=== PATIENT | male | born 1990 | race Hispanic/Latino ===

== ENCOUNTER 2018-10-31 21:23 | Emergency (ER) | payer SELFPAY ==
[2018-10-31] MEDS ORDERED: LIDOCAINE 1% 20 ML MDV ONE (21:56)
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
== END 2018-10-31 23:01 | disposition home or self-care (01) ==
LOC: ER 21:23
PROC: 0JQJ0ZZ Repair Right Hand Subcutaneous Tissue and Fascia, Open Approach (ICD-10-PCS; principal; 2018-10-31)
DX: S61.411A Laceration without foreign body of right hand, initial encounter (principal); W25.XXXA Contact with sharp glass, initial encounter; Y93.9 Activity, unspecified; Y92.9 Unspecified place or not applicable
CPT/HCPCS: 99283

== ENCOUNTER 2018-12-31 19:29 | Emergency (ER) | payer SELFPAY ==
[2018-12-31] MEDS ORDERED: ACETAMINOPHEN 500 MG TAB ONE (20:48)
[2018-12-31] MEDS ORDERED: IBUPROFEN 400 MG TAB ONE (20:48)
[2018-12-31 21:07] LABS: Potassium 3.6 mmol/L (3.5-5.1)
--- NOTE | 2018-12-31 22:17 | ER ---
Nurse's Notes [facility] Name: Tai Adams Age: 28 yrs Sex: Male : 1990 Arrival Date: 12/31/2018 Time: 19:35 Bed 24 Private MD: Diagnosis: Pain in left leg;Pain in right leg Presentation: 12/31 19:40 Transition of care: patient was not received from another setting of care. aj 19:40 Method Of Arrival: Ambulatory aj 19:40 Presenting complaint: Patient states: I have a lot of pain in my legs I have been aj1 working 12 hours a day. I had surgery in my leg 2 years ago. Reports that he has had pain in his legs for years but its worse for the past couple days. Reports that he used to take Neurontin but he stopped taking it. Onset of symptoms. Risk Assessment: Do you want to hurt yourself or someone else? Patient reports no desire to harm self or others. Initial Sepsis Screen: Does the patient meet any 2 criteria? No. Patient's initial sepsis screen is negative. Does the patient have a suspected source of infection? No. Patient's initial sepsis screen is negative. Care prior to arrival: None. 19:40 Acuity: YOVANY 5 aj1 Triage Assessment: 19:45 General: Appears in no apparent distress. comfortable, Behavior is calm, cooperative, aj1 appropriate for age. Pain: Complains of pain in right leg and left leg. Pain: Pain currently is 10 out of 10 on a pain scale. Neuro: Level of Consciousness is awake, alert, obeys commands. Cardiovascular: Patient's skin is warm and dry. Respiratory: Airway is patent Respiratory effort is even, unlabored, Respiratory pattern is regular, symmetrical. GI: No signs and/or symptoms were reported involving the gastrointestinal system. Musculoskeletal: Range of motion: intact in all extremities. Historical: - Allergies: 19:45 NKDA; aj1 - Home Meds: 19:45 None [Active]; aj1 - PMHx: 19:45 None; aj1 - Immunization history:: Flu vaccine is not up to date. - Social history:: Smoking status: Patient uses tobacco products, denies chronic smoking, but will smoke occasionally. - Ebola Screening: : Patient denies travel to an Ebola-affected area in the 21 days before illness onset. Screenin:58 Abuse screen: Denies threats or abuse. Denies injuries from another. Nutritional mg2 screening: No deficits noted. Tuberculosis screening: No symptoms or risk factors identified. Fall Risk None identified. Assessment: 19:57 General: Appears in no apparent distress. comfortable, Behavior is calm, cooperative. mg2 Pain: Complains of pain in left leg and right leg Pain does not radiate. Pain currently is 5 out of 10 on a pain scale. Quality of pain is described as aching, Pain began gradually, 1 day ago. Is intermittent. Neuro: Level of Consciousness is awake, alert, obeys commands, Oriented to person, place, time, situation. Cardiovascular: Capillary refill < 3 seconds Patient's skin is warm and dry. Respiratory: Airway is patent Respiratory effort is even, unlabored, Respiratory pattern is regular, symmetrical. GI: No signs and/or symptoms were reported involving the gastrointestinal system. : No signs and/or symptoms were reported regarding the genitourinary system. EENT: No signs and/or symptoms were reported regarding the EENT system. Derm: Skin is intact, is healthy with good turgor, Skin is pink, warm \T\ dry. normal. Musculoskeletal: Circulation, motion, and sensation intact. Capillary refill < 3 seconds, Reports pain in left leg and right leg. 22:31 Reassessment: Patient denies pain at this time. Patient states feeling better. Patient mg2 states symptoms have improved. 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 mg2 Vital Signs: 19:45 BP 125 / 87; Pulse 90; Resp 18; Temp 98.9(O); Pulse Ox 100% on R/A; Weight 68.04 kg aj1 (R); Height 5 ft. 7 in. (170.18 cm) (R); Pain 10/10; 21:34 BP 113 / 67; Pulse 77; Resp 18; Pulse Ox 98% on R/A; mg2 19:45 Body Mass Index 23.49 (68.04 kg, 170.18 cm) aj1 ED Course: 19:35 Patient arrived in ED. am2 19:44 Triage completed. aj1 19:45 Arm band placed on Patient placed in an exam room. aj1 19:47 Lyndon Bautista PA is PHCP. cp 19:47 Lyndon Sellers MD is Attending Physician. cp 19:56 Juan Tom, RN is Primary Nurse. mg2 19:58 No provider procedures requiring assistance completed. Patient did not have IV access mg2 during this emergency room visit. 19:59 Patient has correct armband on for positive identification. mg2 21:36 US Extremity Venous W Compression George In Process Unspecified. EDMS 22:16 Higinio Merchant DO is Referral Physician. cp Administered Medications: 20:45 Drug: Tylenol 1000 mg Route: PO; mg2 21:21 Follow up: Response: No adverse reaction; Marked relief of symptoms mg2 20:46 Drug: Ibuprofen 800 mg Route: PO; mg2 21:22 Follow up: Response: No adverse reaction; Marked relief of symptoms mg2 Outcome: 22:16 Discharge ordered by MD. cp 22:31 Discharged to home ambulatory. mg2 22:31 Condition: stable 22:31 Discharge instructions given to patient, Instructed on discharge instructions, follow up and referral plans. medication usage, Demonstrated understanding of instructions, follow-up care, medications, Prescriptions given X 2. 22:32 Patient left the ED. mg2 Signatures: Dispatcher [employer] EDMS Sonia Torres, RN RN aj1 Lyndon Bautista, KERRY PA cp Zelda Raymundo am2 Juan Tom, RN RN mg2
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
--- NOTE | 2019-01-01 06:33 | RAD REPORT ---
EXAM DESCRIPTION: US - Extrem Venous W Compress George - 12/31/2018 9:37 pm CLINICAL HISTORY: Leg pain and swelling COMPARISON: None. TECHNIQUE: Real-time sonographic evaluation of the bilateral lower extremity common femoral, superfi cial femoral, popliteal and posterior tibial veins was performed. FINDINGS: Normal compressibility, flow augmentation, phasic flow and spontaneous flow are identified in the left and right lower extremity common femoral, superficial femoral, popliteal and posterior t ibial veins. No intraluminal filling defects seen. IMPRESSION: No DVT in either lower extremity.
== END 2018-12-31 22:32 | disposition home or self-care (01) ==
LOC: ER 19:29
DX: M79.605 Pain in left leg (principal); M79.604 Pain in right leg; Z72.0 Tobacco use
CPT/HCPCS: 36415; 80048; 93970; 99283

== ENCOUNTER 2019-01-05 08:00 | Emergency (ER) | payer SELFPAY ==
[2019-01-05] MEDS ORDERED: ONDANSETRON 4 MG/2 ML VIAL ONE (08:27)
[2019-01-05] MEDS ORDERED: NA CHLORIDE 0.9% 1,000 ML ONE (08:27)
[2019-01-05 08:41] LABS: Absolute Lymphocytes (CBC) 1.5 K/uL (0.7-4.9); Absolute Monocytes 0.4 K/uL (0.1-1.3); Absolute Neutrophil 4.4 K/uL (1.8-8.0); Basophils % 0.6 % (0-1.3); Eosinophils % 6.3 % (0-4.4); Hematocrit 43.6 % (39.6-49.0); Lymphocytes % 22.2 % (15.3-44.8); MPV 8.1 fL (7.6-11.3); Monocytes % 5.3 % (3.3-12.3); RBC Red Blood Cell Count 4.86 M/uL (4.33-5.43)
[2019-01-05 09:00] LABS: Potassium 3.9 mmol/L (3.5-5.1)
--- NOTE | 2019-01-05 09:41 | ER ---
Nurse's Notes [facility] Name: Tai Adams Age: 28 yrs Sex: Male : 1990 Arrival Date: 01/05/2019 Time: 08:02 Bed 20 Private MD: Diagnosis: Cough;Nausea and vomiting Presentation: 01/05 08:06 Presenting complaint: Patient states: generalized abd pain, nausea, vomiting, and aa5 diarrhea since yesterday. Transition of care: patient was not received from another setting of care. Onset of symptoms was December 2018. Risk Assessment: Do you want to hurt yourself or someone else? Patient reports no desire to harm self or others. Initial Sepsis Screen: Does the patient meet any 2 criteria? No. Patient's initial sepsis screen is negative. Does the patient have a suspected source of infection? No. Patient's initial sepsis screen is negative. Care prior to arrival: None. 08:06 Method Of Arrival: Ambulatory aa5 08:06 Acuity: YOVANY 3 aa5 Triage Assessment: 08:09 General: Appears in no apparent distress. Behavior is calm, cooperative, appropriate tw2 for age. Historical: - Allergies: 08:05 NKDA; aa5 - PMHx: 08:05 None; aa5 - PSHx: 08:05 Appendectomy; left femur; abd exploratory surgery; aa5 - Immunization history:: Flu vaccine status is unknown. - Social history:: Smoking status: Patient uses tobacco products, denies chronic smoking, but will smoke occasionally. - Ebola Screening: : No symptoms or risks identified at this time. Screenin:08 Abuse screen: Denies threats or abuse. Nutritional screening: No deficits noted. tw2 Tuberculosis screening: No symptoms or risk factors identified. Fall Risk None identified. Assessment: 08:19 General: Appears in no apparent distress. slender, Behavior is calm, cooperative, tw2 appropriate for age. Pain: Complains of pain in sore throat. Neuro: Level of Consciousness is awake, alert, obeys commands, Oriented to person, place, time, situation. Cardiovascular: Heart tones S1 S2 Patient's skin is warm and dry. Respiratory: Airway is patent Respiratory effort is even, unlabored, Respiratory pattern is regular, symmetrical, Breath sounds are clear bilaterally. GI: Abdomen is flat, Bowel sounds present X 4 quads. Reports diarrhea, nausea, vomiting. : No signs and/or symptoms were reported regarding the genitourinary system. EENT: No signs and/or symptoms were reported regarding the EENT system. Derm: No signs and/or symptoms reported regarding the dermatologic system. Musculoskeletal: Range of motion: intact in all extremities. 09:17 Reassessment: Patient appears in no apparent distress at this time. No changes from tw2 previously documented assessment. Patient and/or family updated on plan of care and expected duration. Pain level reassessed. Patient is alert, oriented x 3, equal unlabored respirations, skin warm/dry/pink. 09:47 Reassessment: Patient is alert, oriented x 3, equal unlabored respirations, skin aa5 warm/dry/pink. Vital Signs: 08:05 BP 113 / 78; Pulse 82; Resp 16 S; Temp 97.6(TE); Pulse Ox 98% on R/A; Weight 68.04 kg aa5 (R); Height 5 ft. 7 in. (170.18 cm) (R); Pain 6/10; 09:17 BP 109 / 69; Pulse 72; Resp 17; Pulse Ox 99% on R/A; tw2 08:05 Body Mass Index 23.49 (68.04 kg, 170.18 cm) aa5 ED Course: 08:02 Patient arrived in ED. aa5 08:04 Arm band placed on. aa5 08:06 Triage completed. aa5 08:07 Sulema Ayala FNP-C is [facility]. kb 08:07 Jesus Vigil MD is Attending Physician. kb 08:07 Rohini Cohen RN is Primary Nurse. tw2 08:08 Bed in low position. Call light in reach. Adult w/ patient. Pulse ox on. NIBP on. tw2 08:29 Missed attempt(s): 20 gauge in right antecubital area. mh5 08:30 Strep Sent. mh5 08:30 Flu Sent. mh5 08:30 Flu and/or RSV swab sent to lab. Strep swab sent to lab. mh5 08:30 Inserted saline lock: 22 gauge in left antecubital area, using aseptic technique. Blood tw2 collected. 09:47 No provider procedures requiring assistance completed. IV discontinued, intact, aa5 bleeding controlled, No redness/swelling at site. Pressure dressing applied. Administered Medications: 08:30 Drug: Zofran 4 mg Route: IVP; Site: left antecubital; tw2 09:50 Follow up: Response: No adverse reaction; Nausea is decreased tw2 08:32 Drug: NS 0.9% 1000 ml Route: IV; Rate: 1000 ml; Site: left antecubital; tw2 09:45 Follow up: Response: No adverse reaction; IV Status: Completed infusion; IV Intake: tw2 1000ml Intake: 09:45 IV: 1000ml; Total: 1000ml. tw2 Outcome: 09:39 Discharge ordered by . kb 09:47 Discharged to home ambulatory, with significant other. aa5 09:47 Condition: stable 09:47 Discharge instructions given to patient, Instructed on discharge instructions, follow up and referral plans. medication usage, Demonstrated understanding of instructions, follow-up care, medications, Prescriptions given X 1. 09:48 Patient left the ED. aa5 Signatures: Sulema Ayala, ERICK-C PSYCHOLOGICAL ANTHROPOLOGIST-Gabbie Jennings RN RN aa5 Rohini Cohen RN RN 2 Lena Mullen [facility] Corrections: (The following items were deleted from the chart) 09:49 09:49 No provider procedures requiring assistance completed. aa5 aa5 09:49 09:49 IV discontinued, intact, bleeding controlled, No redness/swelling at site. aa5 Pressure dressing applied, aa5
--- NOTE | 2019-01-05 09:41 | EDPHYS ---
Physician Documentation [facility] Name: Tai Adams Age: 28 yrs Sex: Male : 1990 Arrival Date: 01/05/2019 Time: 08:02 Bed 20 Private MD: ED Physician Jesus Vigil HPI: 01/05 08:48 This 28 yrs old Male presents to ER via Ambulatory with complaints of kb Nausea/Vomiting/Diarrhea. 08:48 The patient presents to the emergency department with nausea, vomiting, diarrhea. kb Onset: The symptoms/episode began/occurred yesterday. Possible causes: unknown. The symptoms are aggravated by nothing. The symptoms are alleviated by nothing. Associated signs and symptoms: Pertinent positives: diarrhea, nausea, vomiting, Pertinent negatives: abdominal pain, anorexia, belching, constipation, dysuria, fever, flatulence, GI bleeding, hematuria. Severity of symptoms: At their worst the symptoms were mild moderate in the emergency department the symptoms are unchanged. The patient has not experienced similar symptoms in the past. The patient has not recently seen a physician. Pt reports cough and sinus congestion for a couple of days, n/v/d started yesterday. Denies fever or abd pain. Historical: - Allergies: 08:05 NKDA; aa5 - PMHx: 08:05 None; aa5 - PSHx: 08:05 Appendectomy; left femur; abd exploratory surgery; aa5 - Immunization history:: Flu vaccine status is unknown. - Social history:: Smoking status: Patient uses tobacco products, denies chronic smoking, but will smoke occasionally. - Ebola Screening: : No symptoms or risks identified at this time. ROS: 08:47 Constitutional: Negative for fever, chills, and weight loss, Cardiovascular: Negative kb for chest pain, palpitations, and edema, Back: Negative for injury and pain, MS/Extremity: Negative for injury and deformity, Skin: Negative for injury, rash, and discoloration, Neuro: Negative for headache, weakness, numbness, tingling, and seizure. 08:47 Respiratory: Positive for cough, Negative for dyspnea on exertion, hemoptysis, orthopnea, pleurisy, shortness of breath, sputum production, wheezing. 08:47 Abdomen/GI: Positive for nausea, vomiting, and diarrhea, Negative for abdominal pain. Exam: 08:46 Constitutional: This is a well developed, well nourished patient who is awake, alert, kb and in no acute distress. Head/Face: Normocephalic, atraumatic. Neck: Trachea midline, no thyromegaly or masses palpated, and no cervical lymphadenopathy. Supple, full range of motion without nuchal rigidity, or vertebral point tenderness. No Meningismus. Chest/axilla: Normal chest wall appearance and motion. Nontender with no deformity. No lesions are appreciated. Cardiovascular: Regular rate and rhythm with a normal S1 and S2. No gallops, murmurs, or rubs. Normal PMI, no JVD. No pulse deficits. Respiratory: Lungs have equal breath sounds bilaterally, clear to auscultation and percussion. No rales, rhonchi or wheezes noted. No increased work of breathing, no retractions or nasal flaring. Abdomen/GI: Soft, non-tender, with normal bowel sounds. No distension or tympany. No guarding or rebound. No evidence of tenderness throughout. Skin: Warm, dry with normal turgor. Normal color with no rashes, no lesions, and no evidence of cellulitis. MS/ Extremity: Pulses equal, no cyanosis. Neurovascular intact. Full, normal range of motion. Neuro: Awake and alert, GCS 15, oriented to person, place, time, and situation. Cranial nerves II-XII grossly intact. Motor strength 5/5 in all extremities. Sensory grossly intact. Cerebellar exam normal. Normal gait. 08:46 ENT: Posterior pharynx: Airway: normal, Tonsils: bilaterally enlarged, with erythema, Uvula: normal, midline, erythema, that is moderate. Vital Signs: 08:05 BP 113 / 78; Pulse 82; Resp 16 S; Temp 97.6(TE); Pulse Ox 98% on R/A; Weight 68.04 kg aa5 (R); Height 5 ft. 7 in. (170.18 cm) (R); Pain 6/10; 09:17 BP 109 / 69; Pulse 72; Resp 17; Pulse Ox 99% on R/A; tw2 08:05 Body Mass Index 23.49 (68.04 kg, 170.18 cm) aa5 MDM: 08:07 Patient medically screened. kb 08:46 Data reviewed: vital signs, nurses notes. Data interpreted: Pulse oximetry: on room air kb is 98 %. Interpretation: normal. 09:39 Counseling: I had a detailed discussion with the patient and/or guardian regarding: the kb historical points, exam findings, and any diagnostic results supporting the discharge/admit diagnosis, lab results, the need for outpatient follow up, a family practitioner, to return to the emergency department if symptoms worsen or persist or if there are any questions or concerns that arise at home. 01/05 08:14 Order name: Basic Metabolic Panel; Complete Time: 09:14 kb 01/05 08:14 Order name: CBC with Diff; Complete Time: 08:49 kb 01/05 08:14 Order name: Flu; Complete Time: 09:39 kb 01/05 08:14 Order name: Strep; Complete Time: 09:39 kb 01/05 09:39 Order name: Throat Culture EDMS 01/05 08:14 Order name: IV Saline Lock; Complete Time: 08:33 kb 01/05 08:14 Order name: Labs collected and sent; Complete Time: 08:33 kb Administered Medications: 08:30 Drug: Zofran 4 mg Route: IVP; Site: left antecubital; tw2 09:50 Follow up: Response: No adverse reaction; Nausea is decreased tw2 08:32 Drug: NS 0.9% 1000 ml Route: IV; Rate: 1000 ml; Site: left antecubital; tw2 09:45 Follow up: Response: No adverse reaction; IV Status: Completed infusion; IV Intake: tw2 1000ml Disposition: 10:24 Co-signature as Attending Physician, Jesus Vigil MD I agree with the assessment and kdr plan of care. Disposition: 01/05/19 09:39 Discharged to Home. Impression: Cough, Nausea and vomiting. - Condition is Stable. - Discharge Instructions: Nausea and Vomiting, Adult, [id number], Cough, Adult, [id number]. - Prescriptions for Zofran 4 mg Oral Tablet - take 1 tablet by ORAL route every 6 hours As needed; 20 tablet. - Medication Reconciliation Form, Thank You Letter, Antibiotic Education, Prescription Opioid Use form. - Work release form (01/05/19 09:51). kb - Follow up: Emergency Department; When: As needed; Reason: Worsening of condition. Follow up: Private Physician; When: 2 - 3 days; Reason: Recheck today's complaints, Continuance of care, Re-evaluation by your physician. Signatures: Dispatcher [employer] EDSulema Jauregui, BOARDINGHOUSE KEEPER-C BOARDINGHOUSE KEEPER-CkJesus Cabello MD MD kdr Calderon, Audri, RN RN aa5 Rohini Cohen RN RN tw2 Corrections: (The following items were deleted from the chart) 09:48 09:39 01/05/2019 09:39 Discharged to Home. Impression: Cough; Nausea and vomiting. aa5 Condition is Stable. Forms are Medication Reconciliation Form, Thank You Letter, Antibiotic Education, Prescription Opioid Use. Follow up: Emergency Department; When: As needed; Reason: Worsening of condition. Follow up: Private Physician; When: 2 - 3 days; Reason: Recheck today's complaints, Continuance of care, Re-evaluation by your physician. kb
== END 2019-01-05 09:48 | disposition home or self-care (01) ==
LOC: ER 08:00
DX: R11.2 Nausea with vomiting, unspecified (principal); R05 Cough; R19.7 Diarrhea, unspecified; Z72.0 Tobacco use
CPT/HCPCS: 36415; 80048; 85025; 87070; 87081; 87804; 96361; 96374; 99284; J2405; J7030